=== PATIENT | female | born 2000 | race African-American/Black ===

== ENCOUNTER 2021-05-24 15:06 | Outpatient (CLI) | payer OTHER | END 2021-05-24 15:07 | disposition home or self-care (01) | LOC: CSHULT 15:06 | PROVIDERS: ATTEND Family Medicine | DX: O09.893 Supervision of other high risk pregnancies, third trimester (principal); Z3A.29 29 weeks gestation of pregnancy | CPT/HCPCS: 76805 ==

== ENCOUNTER 2021-05-29 00:33 | Day surgery (SDC) | payer OTHER ==
[2021-05-29 01:25] VITALS: BMI 22.4
[2021-05-29] MEDS ORDERED: hydrALAZINE 20 MG/ML VIAL SLOW IVP PRN (01:50)
[2021-05-29] MEDS ORDERED: Lactated Ringer's 1,000 ML IV SCH ×2 (02:00)
[2021-05-29 03:39] LABS: Bilirubin Neg (Negative); Blood, Urine Negative (Negative); Clarity Clear (Clear); Glucose, Urine (Dipstick) Normal (Negative); Ketone, Urine 50 mg/dL (Negative); Leukocyte 25 (Negative); Nitrite Negative (Negative); Protein, Urine (Dipstick) 30 mg/dl (Neg-Trace); Urobilinogen Normal mg/dL (Less than 2)
[2021-05-29 03:55] LABS: Bacteria/HPF None Seen HPF (None Seen); Mucous/LPF None Seen LPF (<2+); RBC/HPF None Seen HPF (0-3); Squamous Epithelial None Seen HPF (0-3); WBC/HPF 0-3 HPF (0-3)
[2021-05-29] MEDS ORDERED: Butorphanol Tartrate 1 MG/ML VIAL SLOW IVP PRN (05:09)
== END 2021-05-29 08:12 | disposition home or self-care (01) ==
LOC: CSHLD/OP 00:33
PROVIDERS: ATTEND Family Medicine
DX: O47.03 False labor before 37 completed weeks of gestation, third trimester (principal); O99.353 Diseases of the nervous system complicating pregnancy, third trimester; O99.343 Other mental disorders complicating pregnancy, third trimester; G40.909 Epilepsy, unspecified, not intractable, without status epilepticus; F32.A Depression, unspecified; Z3A.30 30 weeks gestation of pregnancy; Z79.899 Other long term (current) drug therapy; Z87.59 Personal history of other complications of pregnancy, childbirth and the puerperium
CPT/HCPCS: 36415; 76815; 81003; 81015; 96360; 96361; 96372; 99283; J0595

== ENCOUNTER 2021-07-26 14:38 | Outpatient (CLI) | payer OTHER ==
[2021-07-27 23:39] LABS: SARS-CoV-2 PCR by NAA Not Detected (NotDetected)
== END 2021-07-26 14:39 | disposition home or self-care (01) ==
LOC: CSHLAB 14:38
PROVIDERS: ATTEND Family Medicine
DX: Z20.822 Contact with and (suspected) exposure to COVID-19 (principal)
CPT/HCPCS: U0003; U0005

== ENCOUNTER 2021-07-29 06:00 | Inpatient (IN) | payer OTHER ==
[2021-07-29 08:31] VITALS: BMI 23.6
[2021-07-29] MEDS ORDERED: hydrALAZINE 20 MG/ML VIAL SLOW IVP PRN ×2 (09:18→18:56)
[2021-07-29] MEDS ORDERED: Ibuprofen 800 MG TAB PO PRN (09:18)
[2021-07-29] MEDS ORDERED: Ondansetron PF 4 MG/2 ML Vial IVP PRN ×2 (09:18→18:56)
[2021-07-29] MEDS ORDERED: Acetaminophen 500 MG TAB PO PRN (09:18)
[2021-07-29] MEDS ORDERED: Carboprost 250 MCG/ML AMP IM PRN (09:18)
[2021-07-29] MEDS ORDERED: Lidocaine 1% (PF) 30 ML VIAL SC PRN (09:18)
[2021-07-29] MEDS ORDERED: Methylergonovine 0.2 MG/ML VIAL IM PRN (09:18)
[2021-07-29] MEDS ORDERED: Promethazine HCl 25 MG/ML VIAL IM PRN ×2 (09:18→18:56)
[2021-07-29] MEDS ORDERED: Misoprostol 200 MCG TAB PR PRN (09:18)
[2021-07-29] MEDS ORDERED: HYDROcodone/Acetaminophen 5/325 mg Tablet PO PRN (09:18)
[2021-07-29] MEDS ORDERED: Diphenoxylate HCl/Atropine Tablet PO PRN (09:18)
[2021-07-29] MEDS ORDERED: Butorphanol Tartrate 1 MG/ML VIAL SLOW IVP PRN (09:18)
[2021-07-29] MEDS ORDERED: NS w/ Oxytocin 30 units 500 ML ONE ×2 (09:24→16:38)
[2021-07-29] MEDS ORDERED: Lactated Ringer's 1,000 ML IV SCH (09:30)
[2021-07-29] MEDS ORDERED: NS w/ Oxytocin 30 units 500 ML IV SCH ×3 (09:30→18:56)
[2021-07-29] MEDS ORDERED: Penicillin G Potassium 5 MILL.UNITS in Sodium Chloride 0.9% 100 ML IVPB SCH (09:30)
[2021-07-29 11:12] LABS: Hemoglobin 9.6 g/dL (12.0-15.5); Mean Corpuscular HGB CONC 31.4 g/dL (32.0-36.0); Mean Corpuscular Hemoglobin 24.2 pg (27.0-33.0); Mean Corpuscular Volume 77.3 fl (81.6-98.3); Mean Platelet Volume 11.6 fl (7.4-10.4); Platelet Count 78 10x3/uL (150-450); Red Blood Cell (RBC) Count 3.96 10x6/uL (3.90-5.03); White Blood Cell (WBC) Count 6.4 10x3/uL (3.5-10.5)
[2021-07-29 11:42] LABS: Hep B Surf Ag Non-Reactive S/CO (NonReactive)
[2021-07-29 11:45] LABS: Syphilis Antibody Nonreactive (Nonreactive); Syphilis Antibody Index 0.06 S/CO (<1.00 Non-Reactive)
[2021-07-29 11:58] LABS: HBSAg Index 0.17 S/CO (0-0.99)
[2021-07-29] MEDS ORDERED: Butorphanol Tartrate 1 MG/ML VIAL ONE ×2 (12:05→13:54)
[2021-07-29] MEDS: Penicillin G 2.5 MILL.units 2.5 MILL.UNITS in Premix Bag 1 BAG IVPB SCH (12:37)
[2021-07-29] MEDS ORDERED: Milk Of Magnesia 30 ML UDCUP PO PRN (18:56)
[2021-07-29] MEDS ORDERED: diphenhydrAMINE 25 MG CAP PO PRN (18:56)
[2021-07-29] MEDS ORDERED: Benzocaine-Menthol 82.5 ML CAN TOP PRN (18:56)
[2021-07-29] MEDS ORDERED: Boostrix 0.5 ML (Tdap) VIAL IM ONE (18:56)
[2021-07-29] MEDS ORDERED: Lanolin Ointment 7 GM TUBE TOP PRN (18:56)
[2021-07-29] MEDS ORDERED: Bisacodyl 10 MG SUPP PR PRN (18:56)
[2021-07-29] MEDS ORDERED: Ferrous Sulfate 325 MG TAB PO SCH (19:30)
[2021-07-29] MEDS: HYDROcodone/Acetaminophen 5/325 mg Tablet PO PRN (19:40)
[2021-07-29] MEDS: Docusate 100 MG CAP PO SCH (21:39)
[2021-07-29] MEDS: Ibuprofen 800 MG TAB PO SCH (22:54)
[2021-07-30] MEDS: Penicillin G 2.5 MILL.units 2.5 MILL.UNITS in Premix Bag 1 BAG IVPB SCH (00:16)
[2021-07-30] MEDS: Ibuprofen 800 MG TAB PO SCH ×2 (05:40→13:42)
[2021-07-30] MEDS ORDERED: Ferrous Sulfate 325 MG TAB PO SCH (08:00)
[2021-07-30] MEDS: HYDROcodone/Acetaminophen 5/325 mg Tablet PO PRN (08:47)
[2021-07-30] MEDS: Docusate 100 MG CAP PO SCH (08:47)
[2021-07-30] MEDS ORDERED: Prenatal Vitamin 1 TAB PO SCH (09:00)
[2021-07-30 11:41] VITALS: BP 93/54; TEMP 98.2
== END 2021-07-30 17:40 | disposition home or self-care (01) | DRG 807 ==
LOC: CSHLD 07:45 → CSHPP 17:15
PROVIDERS: ADMIT Family Medicine; ATTEND Family Medicine
PROC: 10E0XZZ Delivery of Products of Conception, External Approach (ICD-10-PCS; principal; 2021-07-29)
DX: O99.824 Streptococcus B carrier state complicating childbirth (principal); Z37.0 Single live birth; O99.12 Other diseases of the blood and blood-forming organs and certain disorders involving the immune mechanism complicating childbirth; D69.6 Thrombocytopenia, unspecified; Z3A.39 39 weeks gestation of pregnancy
CPT/HCPCS: 36415; 85027; 86780; 86850; 86900; 86901; 87340; J0595; J2540; J2590; J3490